=== PATIENT | male | born 1945 | race Caucasian/White ===

== ENCOUNTER 2022-07-27 16:12 | Emergency (ER) | payer MEDICARE, OTHER | END 2022-07-27 17:04 | disposition home or self-care (01) | LOC: DL.ED 16:12 | DX: S63.91XA Sprain of unspecified part of right wrist and hand, initial encounter (principal); I48.91 Unspecified atrial fibrillation; W01.198A Fall on same level from slipping, tripping and stumbling with subsequent striking against other object, initial encounter | CPT/HCPCS: 73110-RT; 93005; 99283 ==